=== PATIENT | female | born 2000 | race Caucasian/White ===

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

== ENCOUNTER 2018-02-27 02:43 | Emergency (ER) | payer OTHER ==
[2018-02-27] MEDS ORDERED: ONDANSETRON 4 MG/2 ML VIAL ONE (02:56)
[2018-02-27] MEDS ORDERED: ONDANSETRON 4 MG/2 ML VIAL IVP ONE (02:58)
[2018-02-27] MEDS ORDERED: NS 1,000 ML IV ONE ×2 (02:58→03:27)
[2018-02-27] MEDS ORDERED: PROMETHAZINE HCL 25 MG/ML INJ IVP ONE (03:27)
[2018-02-27] MEDS ORDERED: FAMOTIDINE 20 MG/NACL 50 ML IV ONE (03:30)
--- NOTE | 2018-02-27 03:32 | EDPHY ---
H & P Stated Complaint: N/V/D, since 1800 Time Seen by Provider: 02/27/18 03:21 HPI/ROS: HPI The patient presents with what initially began as cramping of her lower abdomen at about 4:00 p.m. After eating lunch at noon. She began vomiting at about 6: 00 p.m., nonbloody nonbilious emesis about every 10 min. Then at about 8:00 p.m. She developed watery diarrhea. She was able to sleep intermittently throughout the night, however she has been vomiting more over the last 1 hr and has come into the emergency department. She currently describes crampy epigastric abdominal pain which is intermittent.. REVIEW OF SYSTEMS Constitutional: No fever, no chills. Eyes: No discharge. ENT: No sore throat. Cardiovascular: No chest pain, no palpitations. Respiratory: No cough, no shortness of breath. Gastrointestinal: No abdominal pain, no vomiting. Genitourinary: No hematuria. Musculoskeletal: No back pain. Skin: No rashes. Neurological: No headache. 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 PHYSICAL General Appearance: Alert, no distress Eyes: Pupils equal and round no pallor or injection ENT, Mouth: Mucous membranes moist Respiratory: There are no retractions, lungs are clear to auscultation Cardiovascular: Regular rate and rhythm Gastrointestinal: Abdomen is soft and with mild epigastric tenderness, no masses, bowel sounds normal Neurological: A&O, moves all extremities Skin: Warm and dry, no rashes Musculoskeletal: Neck is supple non tender Extremities: symmetrical, full range of motion Psychiatric: Patient is oriented X 3, there is no agitation Source: Patient, Family Exam Limitations: No limitations - Personal History LMP (Females 10-55): Now Current Tetanus/Diphtheria Vaccine: Yes Current Tetanus Diphtheria and Acellular Pertussis (TDAP): Yes - Medical/Surgical History Hx Asthma: No Hx Chronic Respiratory Disease: No Hx Diabetes: No Hx Cardiac Disease: No Hx Renal Disease: No Hx Cirrhosis: No Hx Alcoholism: No Hx HIV/AIDS: No Hx Splenectomy or Spleen Trauma: No Other PMH: denies - Social History Smoking Status: Never smoked Constitutional: Initial Vital Signs Temperature (C) 36.5 C 02/27/18 02:48 Heart Rate 102 H 02/27/18 02:48 Respiratory Rate 16 02/27/18 02:48 Blood Pressure 118/87 H 02/27/18 02:48 O2 Sat (%) 100 02/27/18 02:48 O2 Delivery Mode Room Air Allergies/Adverse Reactions: No Known Allergies Allergy (Unverified 05/15/17 07:05) Home Medications: Medication Instructions Recorded [id number] 05/15/17 Medical Decision Making Differential Diagnosis: This is a 17-year-old female who presents with several hours of nausea, vomiting , diarrhea, epigastric abdominal pain. On exam, she has normal vital signs, she does have epigastric tenderness. Differential diagnosis includes viral gastroenteritis, toxin mediated enterocolitis, gastritis, appendicitis. In the emergency department, patient received 2 L of IV fluid, antiemetics. Labs were checked and did reveal mild anion gap acidosis which I suspect is related to dehydration. After she received fluids she was feeling much better. Repeat abdominal exam is benign. I suspect she is suffering from a viral gastroenteritis or enterocolitis. I have discussed return precautions for appendicitis. I will send her home with Deedee. She is happy with this plan. - Data Points Laboratory Results: Laboratory Results 02/27/18 03:05 02/27/18 03:05 02/27/18 02/27/18 03:05 03:05 WBC 14.64 10^3/uL H 10^3/uL (3.80-9.50) RBC 5.60 10^6/uL H 10^6/uL (4.18-5.33) Hgb 16.2 g/dL g/dL (12.6-16.3) Hct 47.4 % H % (38.0-47.0) MCV 84.6 fL fL (81.5-99.8) MCH 28.9 pg pg (27.9-34.1) MCHC 34.2 g/dL g/dL (32.4-36.7) RDW 12.6 % % (11.5-15.2) Plt Count 287 10^3/uL 10^3/uL (150-400) MPV 9.4 fL fL (8.7-11.7) Neut % (Auto) 89.6 % H % (39.3-74.2) Lymph % (Auto) 5.9 % L % (15.0-45.0) [place] % (Auto) 3.9 % L % (4.5-13.0) Eos % (Auto) 0.1 % L % (0.6-7.6) Baso % (Auto) 0.2 % L % (0.3-1.7) Nucleat RBC Rel Count 0.0 % % (0.0-0.2) Absolute Neuts (auto) 13.11 10^3/uL H 10^3/uL (1.70-6.50) Absolute Lymphs (auto) 0.87 10^3/uL L 10^3/uL (1.00-3.00) Absolute Monos (auto) 0.57 10^3/uL 10^3/uL (0.30-0.80) Absolute Eos (auto) 0.01 10^3/uL L 10^3/uL (0.03-0.40) Absolute Basos (auto) 0.03 10^3/uL 10^3/uL (0.02-0.10) Absolute Nucleated RBC 0.00 10^3/uL 10^3/uL (0-0.01) Immature Gran % 0.3 % % (0.0-1.1) Immature Gran # 0.05 10^3/uL 10^3/uL (0.00-0.10) Sodium 140 mEq/L mEq/L (135-145) Potassium 4.6 mEq/L mEq/L (3.3-5.0) Chloride 104 mEq/L mEq/L (97-110) Carbon Dioxide 19 mEq/l L mEq/l (22-31) Anion Gap 17 mEq/L H mEq/L (8-16) BUN 21 mg/dL mg/dL (7-23) Creatinine 0.9 mg/dL mg/dL (0.6-1.0) Estimated GFR > 60 Glucose 169 mg/dL H mg/dL (70-100) Calcium 9.3 mg/dL mg/dL (8.5-10.4) Total Bilirubin 0.9 mg/dL mg/dL (0.1-1.4) Conjugated Bilirubin 0.4 mg/dL mg/dL (0.0-0.5) Unconjugated Bilirubin 0.5 mg/dL mg/dL (0.0-1.1) AST 23 IU/L IU/L (14-46) ALT 28 IU/L IU/L (9-52) Alkaline Phosphatase 47 IU/L IU/L (38-126) Total Protein 7.4 g/dL g/dL (6.3-8.2) Albumin 4.3 g/dL g/dL (3.5-5.0) Lipase 80 IU/L IU/L (23-300) Medications Given: Discontinued Medications Sodium Chloride (Ns) 1,000 mls @ 0 mls/hr IV ONCE ONE PRN Reason: Wide Open Stop: 02/27/18 02:59 Last Admin: 02/27/18 03:05 Dose: 1,000 mls Sodium Chloride (Ns) 1,000 mls @ 0 mls/hr IV EDNOW ONE; Wide Open PRN Reason: Protocol Stop: 02/27/18 03:28 Last Admin: 02/27/18 03:41 Dose: 1,000 mls Famotidine/Sodium Chloride (Pepcid 20 Mg (Premix)) 50 mls @ 200 mls/hr IV EDNOW ONE Stop: 02/27/18 03:44 Last Admin: 02/27/18 03:42 Dose: 50 mls Ondansetron HCl (Zofran) 4 mg IVP EDNOW ONE Stop: 02/27/18 02:59 Last Admin: 02/27/18 03:06 Dose: 4 mg Ondansetron HCl (Zofran Odt 4 Mg Prepack#2) 1 btl TAKEHOME EDNOW ONE Stop: 02/27/18 04:42 Last Admin: 02/27/18 04:53 Dose: 1 btl Promethazine HCl (Phenergan) 12.5 mg IVP EDNOW ONE Stop: 02/27/18 03:28 Last Admin: 02/27/18 03:42 Dose: 12.5 mg Departure - Departure Disposition: Home, Routine, Self-Care Clinical Impression: Nausea & vomiting Qualifiers: Vomiting type: unspecified Vomiting Intractability: non-intractable Qualified Code(s): R11.2 - Nausea with vomiting, unspecified Condition: Good Instructions: Ondansetron (By mouth), Acute Nausea and Vomiting (ED) Additional Instructions: Please make sure to drink plenty of fluids. You should return if your feeling worse in any way. Referrals: NONE *PRIMARY CARE P,. [Primary Care Provider] - As per Instructions
[2018-02-27 03:37] LABS: PLATELET COUNT 287 10^3/uL (150-400)
[2018-02-27 04:34] VITALS: BP 104/62
[2018-02-27] MEDS ORDERED: ONDANSETRON 4MG PREPACK#2 BTL TAKEHOME ONE (04:41)
== END 2018-02-27 04:58 | disposition home or self-care (01) ==
DX: R11.2 Nausea with vomiting, unspecified (principal); E86.9 Volume depletion, unspecified
CPT/HCPCS: 96365; J2405; J2550